=== PATIENT | female | born 1970 | race Caucasian/White ===

== ENCOUNTER 2018-12-26 17:05 | Emergency (ER) | payer OTHER ==
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
[2018-12-26] MEDS: LORazepam 1 MG TABLET PO ONE (18:59)
[2018-12-26] MEDS: DIPH,PERTUSS(ACELL),TET VAC/PF 0.5 ML DISP.SYRIN IM ONE (19:38)
[2018-12-26] MEDS: KETOROLAC TROMETHAMINE 60 MG/2 ML VIAL IM ONE (19:45)
[2018-12-26 20:41] VITALS: BP 128/71
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
[2018-12-27 06:42] LABS: APPEARANCE,URINE CLEAR (CLEAR); COLOR,URINE YELLOW (YELLOW); OCCULT BLOOD,URINE TRACE (NEGATIVE); UROBILINOGEN URINE 0.2 Eu (0.2-1.0)
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
== END 2018-12-26 20:25 | disposition home or self-care (01) ==
LOC: ED 17:05
DX: M54.2 Cervicalgia (principal); M54.5 Low back pain; R07.89 Other chest pain; M25.551 Pain in right hip; M25.552 Pain in left hip; M47.9 Spondylosis, unspecified; N32.89 Other specified disorders of bladder; V89.2XXA Person injured in unspecified motor-vehicle accident, traffic, initial encounter
CPT/HCPCS: 71250; 72125; 72131; 73060; 73090; 73521; 73562; 81002; 90715; 96372; 99282; 99283; 99284; J1885